=== PATIENT | female | born 1995 | race Caucasian/White ===

== ENCOUNTER 2016-05-06 19:03 | Emergency (ER) | payer MEDICAID ==
[~2016-05-06] VITALS: Ht 162.6 cm; Wt 58.5 kg
[2016-05-06 19:11] VITALS: BP 103/75; PULSE 142; RESP 16; TEMP 98.3; O2SAT 97
[2016-05-06] MEDS ORDERED: CLINDAMYCIN INJ 900 MG in SODIUM CHLORIDE 0.9% INJ 100 ML IV ONE (20:15)
[2016-05-06] MEDS ORDERED: SODIUM CHLOR 0.9% 1000 ML INJ 1,000 ML IV ONE (20:15)
[2016-05-06 20:38] VITALS: BP 112/67; PULSE 94; RESP 20; O2SAT 99
[2016-05-06 20:47] LABS: AUTOMATED NEUTROPHIL # 4.3 TH/MM3 (1.8-7.7); BASOPHIL % 0.4 % (0.0-2.0); EOSINOPHIL # 0.1 TH/MM3 (0-0.4); EOSINOPHIL % 1.1 % (0.0-4.0); HEMATOCRIT 36.3 % (35.0-46.0); HEMO FLAGS DIFF FINAL; LYMPH % 35.5 % (9.0-44.0); LYMPHOCYTE # 2.6 TH/MM3 (1.0-4.8); MEAN CELL VOLUME 80.9 FL (80.0-100.0); MEAN CORPUSCULAR HEMOGLOBIN 26.9 PG (27.0-34.0); MEAN CORPUSCULAR HGB CONC 33.2 % (32.0-36.0); MONO % 5.5 % (0.0-8.0); NEUT % 57.5 % (16.0-70.0); PLATELET COUNT 421 TH/MM3 (150-450); RED BLOOD COUNT 4.49 MIL/MM3 (4.00-5.30); RED CELL DISTRIBUTION WIDTH 13.7 % (11.6-17.2); WHITE BLOOD COUNT 7.4 TH/MM3 (4.0-11.0)
[2016-05-06 21:01] LABS: POTASSIUM 3.7 MEQ/L (3.5-5.1)
[2016-05-06 21:03] LABS: BLOOD, URINE NEG (NEG); GLUCOSE,URINE NEG (NEG); KETONE, URINE NEG (NEG)
[2016-05-06 21:04] LABS: BICARBONATE 29.4 MEQ/L (21.0-32.0)
[2016-05-06 21:05] LABS: NITRITE,URINE POS (NEG)
[2016-05-06 21:06] LABS: COMMENT (UR) CULTURE INDICATED; CULTURE IF INDICATED CULTURE INDICATED; URINE COLOR YELLOW (YELLW/STRAW)
[2016-05-06 21:08] LABS: BACTERIA, URINE MANY /hpf; RBC, URINE 0-3 /hpf (0-3); SQUAMOUS EPITHELIAL CELL URINE 0-5 /hpf (0-5)
[2016-05-06 21:11] LABS: AMPHETAMINE, URINE NEG (NEG); BARBITURATES, URINE NEG (NEG); COCAINE, URINE NEG (NEG)
--- NOTE | 2016-05-06 21:48 | PD ---
HPI Chief Complaint: Skin Problem Time Seen by Provider: 20:08 Travel History International Travel<30 days: No Contact w/Intl Traveler<30days: No Traveled to known affect area: No History of Present Illness HPI 20 year-old female presents to the emergency department for recheck of right axilla abscess status post I&D 2 days ago at [facility]. Patient states packing fell out. Patient is not certain when the packing dislodged. Patient states she was given 3 prescriptions to antibiotics and 1 pain medication. Patient states she lost her prescriptions and was not able to fill them. Patient states she's had intermittent fever but she is not sure for how long. Patient states areas will but tender but has not gotten worse. Patient denies any other concerns or complaints. Patient denies any chronic medical conditions. Patient is not diabetic. Patient does not report any headache sore throat earache sinus pressure drainage cough congestion chest pain shortness of breath abdominal pain nausea vomiting diarrhea dysuria frequency urgency flank pain abnormal vaginal bleeding or other concerns. Patient states she is just here for two-day recheck because head is within the hospital told her she do. Patient is noted triage to be tachycardic. Patient denies alcohol use tobacco use and substance use. [facility] Past Medical History Narrative Medical Abscess; no tobacco use no alcohol use; nursing notes reviewed Diminished Hearing: No Medical other: Yes (ABSCESS UNDER RIGHT ARM) Tetanus Vaccination: > 5 Years Influenza Vaccination: No ?: Not LMP: 05/01/16 Social History Alcohol Use: No Tobacco Use: No Substance Use: No Allergies-Medications (Allergen,Severity, Reaction): Coded Allergies: No Known Allergies (Unverified , 05/06/16) Reported Meds & Prescriptions Reported Meds & Active Scripts Active Doxycycline Hyclate 100 Mg Cap 100 Mg PO BID Bactrim DS (Sulfamethoxazole-Trimethoprim) 800-160 Mg Tab 1 Tab PO BID Review of Systems Except as stated in HPI: all other systems reviewed are Neg Physical Exam Narrative GENERAL: Well-developed well-nourished female in no acute distress no respiratory distress SKIN: Warm and dry. HEAD: Normocephalic. EYES: No scleral icterus. No injection or drainage. NECK: Supple, trachea midline. No JVD or lymphadenopathy. CARDIOVASCULAR: Increased Regular rate and rhythm without murmurs, gallops, or rubs. RESPIRATORY: Breath sounds equal bilaterally. No accessory muscle use. GASTROINTESTINAL: Abdomen soft, non-tender, nondistended. MUSCULOSKELETAL: No cyanosis, or edema. Right axilla with small area of focal induration without fluctuance or purulent drainage mild tenderness to palpation. BACK: Nontender without obvious deformity. No CVA tenderness. Data Data Last Documented VS Orders Basic Metabolic Panel (Bmp) (05/06/16 20:08) Complete Blood Count With Diff (05/06/16 20:08) Blood Culture (05/06/16 20:08) Iv Access Insert/Monitor (05/06/16 20:08) Clindamycin Inj (Cleocin Inj) (05/06/16 20:15) Sodium Chlor 0.9% 1000 Ml Inj (Ns 1000 M (05/06/16 20:15) Ed Urine Pregnancytest Poc (05/06/16 20:08) Drug Screen, Random Urine (05/06/16 20:08) Urinalysis - C+S If Indicated (05/06/16 20:08) Urine Culture (05/06/16 20:30) Labs MDM Medical Decision Making Medical Screen Exam Complete: Yes Emergency Medical Condition: Yes Medical Record Reviewed: Yes Interpretation(s) POC hcg: negative Laboratory Tests Test 05/06/16 05/06/16 20:30 20:39 Urine Color YELLOW Urine Turbidity CLOUDY Urine pH 6.0 Urine Specific [place] 1.022 Urine Protein NEG mg/dL Urine Glucose (UA) NEG mg/dL Urine Ketones NEG mg/dL Urine Occult Blood NEG Urine Nitrite POS Urine Bilirubin NEG Urine Leukocyte Esterase NEG Urine RBC 0-3 /hpf Urine WBC 3-5 /hpf Urine Squamous Epithelial 0-5 /hpf Cells Urine Bacteria MANY /hpf Microscopic Urinalysis Comment CULTURE INDICATED White Blood Count 7.4 TH/MM3 Red Blood Count 4.49 MIL/MM3 Hemoglobin 12.1 GM/DL Hematocrit 36.3 % Mean Corpuscular Volume 80.9 FL Mean Corpuscular Hemoglobin 26.9 PG Mean Corpuscular Hemoglobin 33.2 % Concent Red Cell Distribution Width 13.7 % Platelet Count 421 TH/MM3 Mean Platelet Volume 8.6 FL Neutrophils (%) (Auto) 57.5 % Lymphocytes (%) (Auto) 35.5 % Monocytes (%) (Auto) 5.5 % Eosinophils (%) (Auto) 1.1 % Basophils (%) (Auto) 0.4 % Neutrophils # (Auto) 4.3 TH/MM3 Lymphocytes # (Auto) 2.6 TH/MM3 Monocytes # (Auto) 0.4 TH/MM3 Eosinophils # (Auto) 0.1 TH/MM3 Basophils # (Auto) 0.0 TH/MM3 CBC Comment DIFF FINAL Differential Comment Sodium Level 145 MEQ/L Potassium Level 3.7 MEQ/L Chloride Level 108 MEQ/L Carbon Dioxide Level 29.4 MEQ/L Anion Gap 8 MEQ/L Blood Urea Nitrogen 15 MG/DL Creatinine 0.72 MG/DL Estimat Glomerular Filtration 104 ML/MIN Rate Random Glucose 87 MG/DL Calcium Level 8.6 MG/DL Urine Opiates Screen NEG Urine Barbiturates Screen NEG Urine Amphetamines Screen NEG Urine Benzodiazepines Screen POS Urine Cocaine Screen NEG Urine Cannabinoids Screen POS Differential Diagnosis Abscess recheck, tachycardia, UTI, substance ingestion, , sepsis Narrative Course IV access obtained specimens collected and sent for resulting Patient administered IV fluid bolus Urinalysis consistent with UTI Patient given first dose of antibiotic in the emergency department Patient encouraged to discontinue substance use Right axilla abscess appears to be healing no further packing indicated Diagnosis Primary Impression: UTI (urinary tract infection) Additional Impressions: Abscess re-check Substance abuse Referrals: Primary Care Physician call for appointment Patient Instructions: General Instructions Additional Instructions: Complete course of antibiotic as prescribed Follow-up with your primary care provider Return to the emergency department for any concerns or change in condition Monitor temperature and take as needed acetaminophen/Tylenol every 4 hours for fever 100.4F or greater and/or ibuprofen/Motrin/Advil every 6-8 hours as needed for fever 100.4F or greater or for pain associated with inflammation Increase fluid hydration Avoid substance use Med/Other Pt SpecificInfo: Prescription(s) given Scripts Doxycycline Hyclate 100 Mg [id number] Mg PO BID #14 CAP Ref 0 Prov:Gila Gil MD 05/06/16 Sulfamethoxazole-Trimethoprim (Bactrim DS)800-160 Mg Tab1 Tab PO BID #14 TAB Ref 0 Prov:Gila Gil MD 05/06/16 Disposition: 01 DISCHARGE HOME Condition: Stable Gila Gil MD May 06, 2016 21:48 Mean Corpuscular Hemoglobin 33.2 % Concent Red Cell Distribution Width 13.7 % Platelet Count 421 TH/MM3 Mean Platelet Volume 8.6 FL Neutrophils (%) (Auto) 57.5 % Lymphocytes (%) (Auto) 35.5 % Monocytes (%) (Auto) 5.5 % Eosinophils (%) (Auto) 1.1 % Basophils (%) (Auto) 0.4 % Neutrophils # (Auto) 4.3 TH/MM3 Lymphocytes # (Auto) 2.6 TH/MM3 Monocytes # (Auto) 0.4 TH/MM3 Eosinophils # (Auto) 0.1 TH/MM3 Basophils # (Auto) 0.0 TH/MM3 CBC Comment DIFF FINAL Differential Comment Sodium Level 145 MEQ/L Potassium Level 3.7 MEQ/L Chloride Level 108 MEQ/L Carbon Dioxide Level 29.4 MEQ/L Anion Gap 8 MEQ/L Blood Urea Nitrogen 15 MG/DL Creatinine 0.72 MG/DL Estimat Glomerular Filtration 104 ML/MIN Rate Random Glucose 87 MG/DL Calcium Level 8.6 MG/DL Urine Opiates Screen NEG Urine Barbiturates Screen NEG Urine Amphetamines Screen NEG Urine Benzodiazepines Screen POS Urine Cocaine Screen NEG Urine Cannabinoids Screen POS Differential Diagnosis Abscess recheck, tachycardia, UTI, substance ingestion, Diagnosis Primary Impression: UTI (urinary tract infection) Additional Impressions: Abscess re-check Substance abuse Referrals: Primary Care Physician call for appointment Patient Instructions: General Instructions Additional Instructions: Complete course of antibiotic as prescribed Follow-up with your primary care provider Return to the emergency department for any concerns or change in condition Monitor temperature and take as needed acetaminophen/Tylenol every 4 hours for fever 100.4F or greater and/or ibuprofen/Motrin/Advil every 6-8 hours as needed for fever 100.4F or greater or for pain associated with inflammation Increase fluid hydration Avoid substance use Med/Other Pt SpecificInfo: Prescription(s) given Scripts Doxycycline Hyclate 100 Mg [id number] Mg PO BID #14 CAP Ref 0 Prov:Gila Gil MD 05/06/16 Sulfamethoxazole-Trimethoprim (Bactrim DS)800-160 Mg Tab1 Tab PO BID #14 TAB Ref 0 Prov:Gila Gil MD 05/06/16 Gila Gil MD May 06, 2016 21:48
[2016-05-06] MEDS ORDERED: BACT800T5 PO (21:59)
[2016-05-06] MEDS ORDERED: DOXY100C PO (21:59)
[2016-05-06 22:00] VITALS: BP 111/62; PULSE 90; RESP 20; O2SAT 99
[2016-05-06 23:32] VITALS: BP 110/76
== END 2016-05-06 23:39 | disposition home or self-care (01) ==
LOC: PHED 19:03
DX: L02.411 Cutaneous abscess of right axilla (principal); N39.0 Urinary tract infection, site not specified; R00.0 Tachycardia, unspecified
CPT/HCPCS: 80048; 80307; 81001; 84703; 85025; 87040; 87077; 87086; 87186; J7030; 96365